=== PATIENT | male | born 1960 | race Caucasian/White ===

== ENCOUNTER 2020-03-22 19:24 | Inpatient (IN) | payer MEDICAID ==
[~2020-03-22] VITALS: Ht 185.4 cm; Wt 113.4 kg
[2020-03-22] MEDS ORDERED: MORPHINE SULFATE 4 MG/ML CPJ (NOT FOR IM USE) IV ONE (20:00)
[2020-03-22] MEDS ORDERED: KETOROLAC 30MG/ML VIAL IV ONE (20:00)
[2020-03-22] MEDS ORDERED: SODIUM CHLORIDE 0.9% 500 ML IV ONE (20:00)
[2020-03-22] MEDS ORDERED: HYDROMORPHONE HCL/PF 2MG/ML CPJ IV ONE (22:30)
[2020-03-22] MEDS: MORPHINE SULFATE 2 MG/ML CPJ (NOT FOR IM USE) IV PRN (22:40)
[2020-03-22 23:21] LABS: BASOPHILS % 0.5 % (0.0-2.0); EOSINOPHILS % 0.5 % (0.0-5.0); HEMATOCRIT. 42.3 % (42.0-52.0); LYMPHOCYTES % 13.6 % (20.0-50.0); MEAN CORPUSCULAR HEMOGLOBIN 27.3 pg (28.0-32.0); MEAN CORPUSCULAR VOLUME 82.6 fL (80.0-94.0); MEAN PLATELET VOLUME 11.1 fl (7.4-10.4); NEUTROPHILS % 80.4 % (40.0-76.0); PLATELET 193 x1000/uL (130-400); RED BLOOD CELL COUNT 5.12 mill/uL (4.7-6.1); RED CELL DISTRIBUTION WIDTH 14.1 % (11.6-14.6)
[2020-03-22 23:25] LABS: CHLORIDE 105 mEq/L (98-107)
[2020-03-22 23:30] LABS: PARTIAL THROMBOPLASTIN TIME 27.6 sec (23.4-31.0); PROTHROMBIN TIME 10.5 sec (9.6-11.0)
[2020-03-23] MEDS ORDERED: IOHEXOL-350 100 ML BOTTLE ONE (01:07)
[2020-03-23] MEDS: MORPHINE SULFATE 2 MG/ML CPJ (NOT FOR IM USE) IV PRN ×8 (02:34→22:41)
[2020-03-23] MEDS ORDERED: HYDRALAZINE 20MG/ML VIAL IV PRN (06:30)
[2020-03-23 08:00] VITALS: BP 145/93
[2020-03-23] MEDS ORDERED: ENOXAPARIN 30MG/0.3ML SYR SUBCUT SCH (09:30)
[2020-03-23] MEDS ORDERED: ACETAMINOPHEN 325MG TABLET PO PRN (09:30)
[2020-03-23] MEDS ORDERED: ONDANSETRON HCL 4MG/2ML INJ IV PRN (09:30)
[2020-03-23 10:42] VITALS: BP 145/93
[2020-03-23] MEDS ORDERED: AMLODIPINE 10MG TABLET PO NR (11:30)
[2020-03-23 12:14] VITALS: BP 145/93
[2020-03-23 12:56] LABS: CLARITY URINE CLEAR (CLEAR); COLOR URINE YELLOW (YELLOW); KETONES URINE NEGATIVE (NEGATIVE); LEUKOCYTE ESTERASE URINE NEGATIVE (NEGATIVE); NITRITE URINE NEGATIVE (NEGATIVE); OCCULT BLOOD URINE NEGATIVE (NEGATIVE); PH URINE 7.5 (4.5-8.0); PROTEIN URINE TRACE (NEGATIVE); SPECIFIC GRAVITY URINE 1.044 (1.005-1.030)
[2020-03-23 13:09] LABS: *AMPHETAMINES SCREEN URINE NEGATIVE (NEGATIVE); *BARBITURATES SCREEN URINE NEGATIVE (NEGATIVE); *BENZODIAZEPINES SCREEN URINE NEGATIVE (NEGATIVE)
[2020-03-23 13:10] LABS: *COCAINE SCREEN URINE PRESUMTIVE POSITIVE (NEGATIVE); CANNABINOID URINE SCREEN PRESUMTIVE POSITIVE (NEGATIVE); METHADONE URINE SCREEN NEGATIVE (NEGATIVE); OPIATES URINE SCREEN PRESUMTIVE POSITIVE (NEGATIVE)
[2020-03-23 13:12] LABS: PHENCYCLIDINE URINE SCREEN NEGATIVE (NEGATIVE)
[2020-03-23] MEDS ORDERED: DEXTROSE 50% WATER 50ML SYRINGE IV PRN (14:15)
[2020-03-23] MEDS ORDERED: HYDRALAZINE 10 MG in SODIUM CHLORIDE 0.9% 49.5 ML IV PRN (14:15)
[2020-03-23 16:00] VITALS: BP 127/74
[2020-03-23] MEDS: BLOOD SUGAR DIAGNOSTIC STRIP TEST SCH ×2 (17:33→20:56)
[2020-03-23] MEDS: INSULIN LISPRO 100 UNITS/ML SUBCUT SCH ×2 (17:55→20:56)
[2020-03-23 20:00] VITALS: BP 137/86
[2020-03-24] VITALS: BP 136/92
[2020-03-24] MEDS: MORPHINE SULFATE 2 MG/ML CPJ (NOT FOR IM USE) IV PRN ×5 (00:49→22:09)
[2020-03-24 04:00] VITALS: BP 142/90
[2020-03-24 07:22] LABS: BASOPHILS % 0.5 % (0.0-2.0); EOSINOPHILS % 0.6 % (0.0-5.0); HEMATOCRIT. 41.7 % (42.0-52.0); HEMOGLOBIN. 13.9 g/dL (14.0-18.0); LYMPHOCYTES % 16.1 % (20.0-50.0); MEAN CORPUSCULAR HEMOGLOBIN 27.3 pg (28.0-32.0); MEAN CORPUSCULAR VOLUME 82.1 fL (80.0-94.0); MEAN PLATELET VOLUME 11.3 fl (7.4-10.4); NEUTROPHILS % 74.8 % (40.0-76.0); PLATELET 163 x1000/uL (130-400); RED BLOOD CELL COUNT 5.08 mill/uL (4.7-6.1); RED CELL DISTRIBUTION WIDTH 14.2 % (11.6-14.6)
[2020-03-24] MEDS: BLOOD SUGAR DIAGNOSTIC STRIP TEST SCH ×4 (07:34→20:45)
[2020-03-24 07:57] LABS: CHLORIDE 105 mEq/L (98-107)
[2020-03-24 08:00] VITALS: BP 159/96
[2020-03-24] MEDS: INSULIN LISPRO 100 UNITS/ML SUBCUT SCH ×4 (08:37→23:15)
[2020-03-24] MEDS: AMLODIPINE 10MG TABLET PO SCH (08:37)
[2020-03-24] MEDS ORDERED: NORMAL SALINE 0.9% 10 ML SYR ONE (11:20)
[2020-03-24] MEDS ORDERED: BUPIVACAINE/EPINEPH/PF 0.25%/0.0005 10ML ONE (11:20)
[2020-03-24] MEDS ORDERED: VANCOMYCIN HCL 1 GM/VIAL ONE (11:21)
[2020-03-24] MEDS ORDERED: BACITRACIN 50,000 UNITS/VIAL ONE (11:21)
[2020-03-24] MEDS ORDERED: SKIN ADHESIVE 0.7 GM EA TOP ONE (11:22)
[2020-03-24] MEDS ORDERED: BACITRACIN 15GM TUBE TOP ONE (11:23)
[2020-03-24 12:00] VITALS: BP 148/87
[2020-03-24] MEDS ORDERED: MIDAZOLAM HCL 2 MG/2 ML VIAL ONE (12:49)
[2020-03-24] MEDS ORDERED: GLYCOPYRROLATE 0.2 MG/ML 2ML VIAL ONE (12:49)
[2020-03-24] MEDS ORDERED: FENTANYL CITRATE/PF 50MCG/ML 2ML VIAL ONE (12:49)
[2020-03-24] MEDS ORDERED: PROPOFOL 200MG/20ML VIAL IV ONE (12:49)
[2020-03-24] MEDS ORDERED: DEXAMETHASONE 4MG/ML 1ML VIAL ONE (12:54)
[2020-03-24] MEDS ORDERED: ONDANSETRON HCL 4MG/2ML INJ ONE (12:54)
[2020-03-24] MEDS ORDERED: SODIUM CHLORIDE 0.9% 10ML VIAL ONE (13:01)
[2020-03-24] MEDS ORDERED: CEFAZOLIN SODIUM 1000MG/VIAL ONE (13:01)
[2020-03-24] MEDS ORDERED: VECURONIUM BROMIDE 10 MG/VIAL IV ONE (13:01)
[2020-03-24] MEDS ORDERED: ROCURONIUM BROMIDE 10MG/ML VIAL 5ML IV ONE (13:11)
[2020-03-24] MEDS ORDERED: HYDROMORPHONE HCL/PF 2MG/ML (OR) ONE ×2 (13:18→15:40)
[2020-03-24] MEDS ORDERED: MEPERIDINE HCL/PF 25MG/ML CPJ IV PRN (13:30)
[2020-03-24] MEDS ORDERED: HYDROMORPHONE HCL/PF 2MG/ML CPJ IV PRN (13:30)
[2020-03-24] MEDS ORDERED: LABETALOL 5MG/ML SYR 20 MG/4 ML SYRINGE IV PRN (13:30)
[2020-03-24] MEDS ORDERED: ONDANSETRON HCL 4MG/2ML INJ IV PRN ×2 (13:30→16:00)
[2020-03-24] MEDS ORDERED: HYDROCODONE/ACETAMINOPHEN 5/325MG TABLET PO PRN ×2 (16:00)
[2020-03-24] MEDS: HYDROMORPHONE HCL/PF 2MG/ML CPJ IV PRN (19:58)
[2020-03-24 20:00] VITALS: BP 110/60
[2020-03-24] MEDS: CEFAZOLIN 1000MG PREMIX 50 ML IV SCH (21:59)
[2020-03-24] MEDS: INSULIN GLARGINE UD 100 UNITS/ML SYR SUBCUT SCH (23:15)
[2020-03-25] VITALS: BP 127/80
[2020-03-25] MEDS: HYDROMORPHONE HCL/PF 2MG/ML CPJ IV PRN ×3 (00:18→13:11)
[2020-03-25] MEDS: MORPHINE SULFATE 2 MG/ML CPJ (NOT FOR IM USE) IV PRN ×3 (03:36→12:10)
[2020-03-25 04:00] VITALS: BP 120/77
[2020-03-25] MEDS: CEFAZOLIN 1000MG PREMIX 50 ML IV SCH ×2 (05:44→13:11)
[2020-03-25] MEDS: BLOOD SUGAR DIAGNOSTIC STRIP TEST SCH ×2 (06:48→13:01)
[2020-03-25 08:00] VITALS: BP 127/77
[2020-03-25] MEDS: ENOXAPARIN 30MG/0.3ML SYR SUBCUT SCH ×2 (09:00→10:23)
[2020-03-25] MEDS: AMLODIPINE 10MG TABLET PO SCH (09:56)
[2020-03-25] MEDS: INSULIN LISPRO 100 UNITS/ML SUBCUT SCH ×2 (10:21→13:16)
[2020-03-25] MEDS: INSULIN GLARGINE UD 100 UNITS/ML SYR SUBCUT SCH (10:21)
[2020-03-25 11:06] LABS: BASOPHILS % 0.3 % (0.0-2.0); EOSINOPHILS % 0.2 % (0.0-5.0); HEMATOCRIT. 37.6 % (42.0-52.0); HEMOGLOBIN. 12.6 g/dL (14.0-18.0); LYMPHOCYTES % 10.5 % (20.0-50.0); MEAN CORPUSCULAR HEMOGLOBIN 27.5 pg (28.0-32.0); MEAN PLATELET VOLUME 10.9 fl (7.4-10.4); MONOCYTES % 8.7 % (2.0-8.0); NEUTROPHILS % 80.3 % (40.0-76.0); PLATELET 178 x1000/uL (130-400); RED BLOOD CELL COUNT 4.58 mill/uL (4.7-6.1); RED CELL DISTRIBUTION WIDTH 14.2 % (11.6-14.6)
[2020-03-25 11:16] LABS: CHLORIDE 102 mEq/L (98-107)
[2020-03-25 12:00] VITALS: BP 134/72
[2020-03-25] MEDS ORDERED: CEFTRIAXONE 1 G PREMIX 50 ML IV SCH (12:00)
[2020-03-25] MEDS ORDERED: OXYC-515 MT (12:15)
[2020-03-25 13:11] VITALS: BP 134/72
[2020-03-25] MEDS ORDERED: INSULIN GLARGINE UD 100 UNITS/ML SYR SUBCUT SCH (22:00)
== END 2020-03-25 14:21 | disposition home health service (06) | DRG 313 ==
LOC: ER 19:24 → 6EST 03-23 01:30 → EDBEDREQ 03-23 01:37 → EDBEDREQTM 03-23 01:37 → ENRESERV 03-23 07:24
PROVIDERS: ADMIT Internal Medicine; ATTEND Internal Medicine
PROC: 0QSH04Z Reposition Left Tibia with Internal Fixation Device, Open Approach (ICD-10-PCS; principal; 2020-03-24)
PROC: 0QUH0JZ Supplement Left Tibia with Synthetic Substitute, Open Approach (ICD-10-PCS; 2020-03-24)
DX: S82.142A Displaced bicondylar fracture of left tibia, initial encounter for closed fracture (principal); E44.1 Mild protein-calorie malnutrition; D72.829 Elevated white blood cell count, unspecified; E11.9 Type 2 diabetes mellitus without complications; E66.9 Obesity, unspecified; F12.90 Cannabis use, unspecified, uncomplicated; F14.90 Cocaine use, unspecified, uncomplicated; F17.210 Nicotine dependence, cigarettes, uncomplicated; I10 Essential (primary) hypertension; Z68.33 Body mass index [BMI] 33.0-33.9, adult; Z71.3 Dietary counseling and surveillance; Z71.51 Drug abuse counseling and surveillance of drug abuser; V28.4XXA Motorcycle driver injured in noncollision transport accident in traffic accident, initial encounter; Y93.89 Activity, other specified; Y92.89 Other specified places as the place of occurrence of the external cause; Y99.8 Other external cause status; Z03.818 Encounter for observation for suspected exposure to other biological agents ruled out
CPT/HCPCS: 36415; 71045; 73560; 73562; 73590; 73700; 73706; 76000; 80048; 80053; 80305; 81003; 82962; 83036; 84145; 84484; 85025; 86850; 86900; 93970; 97162; 99285; C1713; J0171; J0360; J0690; J1100; J1170; J1650; J1815; J1885; J2250; J2270; J2405; J2704; J3010; J3370; J3490; J7040; L1830; Q9967; U0003-CS

== ENCOUNTER 2020-04-03 21:43 | Inpatient (IN) | payer MEDICAID ==
[~2020-04-03] VITALS: Ht 185.4 cm; Wt 113.4 kg
[2020-04-03 20:00] VITALS: BP 152/92
[2020-04-03 20:10] VITALS: BP 152/92
[~2020-04-03 21:43] MED LIST: OXYC-515 MT
[2020-04-03] MEDS ORDERED: DEXTROSE 50% WATER 50ML SYRINGE IV PRN (23:15)
[2020-04-03] MEDS ORDERED: ZOLPIDEM TARTRATE 5MG TABLET PO PRN (23:15)
[2020-04-03] MEDS ORDERED: ACETAMINOPHEN 325MG TABLET PO PRN (23:15)
[2020-04-04] VITALS: BP 149/83
[2020-04-04] MEDS: MORPHINE SULFATE 2 MG/ML CPJ (NOT FOR IM USE) IV PRN ×4 (00:18→21:19)
[2020-04-04] MEDS ORDERED: LOV40 SQ (02:52)
[2020-04-04 04:00] VITALS: BP 114/87
[2020-04-04] MEDS: PIPERACILLIN/TAZ 3.375G PREMIX 50 ML IV SCH ×3 (04:01→21:20)
[2020-04-04] MEDS ORDERED: VANCOMYCIN 1500MG in DEXTROSE 5% WATER 250ML IV SCH (05:00)
[2020-04-04] MEDS ORDERED: PIPERACILLIN/TAZOBACTAM 3.375 G/VIAL IV SCH (06:00)
[2020-04-04 06:20] LABS: CHLORIDE 107 mEq/L (98-107)
[2020-04-04] MEDS: BLOOD SUGAR DIAGNOSTIC STRIP TEST SCH ×4 (06:28→21:43)
[2020-04-04 06:31] LABS: BASOPHILS % 1.1 % (0.0-2.0); EOSINOPHILS % 2.1 % (0.0-5.0); HEMOGLOBIN. 12.1 g/dL (14.0-18.0); LYMPHOCYTES % 24.4 % (20.0-50.0); MEAN CORPUSCULAR HEMOGLOBIN 27.2 pg (28.0-32.0); MEAN CORPUSCULAR VOLUME 83.4 fL (80.0-94.0); MONOCYTES % 7.4 % (2.0-8.0); PLATELET 297 x1000/uL (130-400); RED BLOOD CELL COUNT 4.43 mill/uL (4.7-6.1)
[2020-04-04 08:00] VITALS: BP 151/96
[2020-04-04] MEDS: INSULIN LISPRO 100 UNITS/ML SUBCUT SCH ×3 (08:13→18:16)
[2020-04-04 12:00] VITALS: BP 143/93
[2020-04-04] MEDS: VANCOMYCIN 1 G PREMIX 200 ML IV SCH ×2 (12:41→18:41)
[2020-04-04 16:00] VITALS: BP 154/91
[2020-04-04 20:00] VITALS: BP 149/91
[2020-04-05] VITALS: BP 143/86
[2020-04-05] MEDS: INSULIN LISPRO 100 UNITS/ML SUBCUT SCH ×5 (00:26→21:40)
[2020-04-05] MEDS: MORPHINE SULFATE 2 MG/ML CPJ (NOT FOR IM USE) IV PRN ×3 (02:51→18:44)
[2020-04-05] MEDS: VANCOMYCIN 1 G PREMIX 200 ML IV SCH ×2 (02:51→11:46)
[2020-04-05 04:00] VITALS: BP 144/90
[2020-04-05] MEDS: PIPERACILLIN/TAZ 3.375G PREMIX 50 ML IV SCH ×2 (05:31→11:47)
[2020-04-05] MEDS: BLOOD SUGAR DIAGNOSTIC STRIP TEST SCH ×4 (06:46→21:32)
[2020-04-05 07:52] LABS: CHLORIDE 104 mEq/L (98-107)
[2020-04-05 12:00] VITALS: BP 142/84
[2020-04-05] MEDS: PIPERACILLIN/TAZOBACTAM 3.375 G in DEXT 5% WATER 100 ML IV SCH ×2 (18:24→23:44)
[2020-04-05] MEDS: VANCOMYCIN 1250MG in DEXTROSE 5% WATER 250ML IV SCH (18:25)
[2020-04-05 20:24] VITALS: BP 138/76
[2020-04-06] VITALS: BP 118/64
[2020-04-06] MEDS: MORPHINE SULFATE 2 MG/ML CPJ (NOT FOR IM USE) IV PRN ×5 (00:10→23:45)
[2020-04-06 04:00] VITALS: BP 137/83
[2020-04-06] MEDS: VANCOMYCIN 1250MG in DEXTROSE 5% WATER 250ML IV SCH ×3 (04:53→18:27)
[2020-04-06] MEDS: PIPERACILLIN/TAZOBACTAM 3.375 G in DEXT 5% WATER 100 ML IV SCH ×4 (06:53→23:45)
[2020-04-06] MEDS: BLOOD SUGAR DIAGNOSTIC STRIP TEST SCH ×4 (07:45→21:30)
[2020-04-06 08:00] VITALS: BP 145/77
[2020-04-06] MEDS: INSULIN LISPRO 100 UNITS/ML SUBCUT SCH ×4 (08:47→21:30)
[2020-04-06 12:00] VITALS: BP 145/85
[2020-04-06 16:00] VITALS: BP 134/78
[2020-04-06 20:00] VITALS: BP 145/85
[2020-04-07] VITALS: BP 134/71
[2020-04-07] MEDS: VANCOMYCIN 1250MG in DEXTROSE 5% WATER 250ML IV SCH ×3 (01:54→19:23)
[2020-04-07 04:00] VITALS: BP 160/94
[2020-04-07] MEDS: PIPERACILLIN/TAZOBACTAM 3.375 G in DEXT 5% WATER 100 ML IV SCH ×4 (06:12→23:49)
[2020-04-07] MEDS: BLOOD SUGAR DIAGNOSTIC STRIP TEST SCH ×4 (06:38→20:38)
[2020-04-07 08:00] VITALS: BP 143/84
[2020-04-07] MEDS: INSULIN LISPRO 100 UNITS/ML SUBCUT SCH ×4 (08:08→20:38)
[2020-04-07 08:58] LABS: CHLORIDE 107 mEq/L (98-107)
[2020-04-07] MEDS: MORPHINE SULFATE 2 MG/ML CPJ (NOT FOR IM USE) IV PRN ×4 (10:20→23:49)
[2020-04-07 12:00] VITALS: BP 130/75
[2020-04-07 16:00] VITALS: BP 136/80
[2020-04-07 20:00] VITALS: BP 137/94
[2020-04-08] VITALS: BP 122/77
[2020-04-08] MEDS: VANCOMYCIN 1250MG in DEXTROSE 5% WATER 250ML IV SCH ×3 (01:49→18:45)
[2020-04-08 04:00] VITALS: BP 146/80
[2020-04-08] MEDS: PIPERACILLIN/TAZOBACTAM 3.375 G in DEXT 5% WATER 100 ML IV SCH ×4 (05:46→23:50)
[2020-04-08] MEDS: BLOOD SUGAR DIAGNOSTIC STRIP TEST SCH ×4 (06:35→20:49)
[2020-04-08 08:00] VITALS: BP 134/89
[2020-04-08] MEDS: INSULIN LISPRO 100 UNITS/ML SUBCUT SCH ×4 (08:22→21:04)
[2020-04-08] MEDS: MORPHINE SULFATE 2 MG/ML CPJ (NOT FOR IM USE) IV PRN ×2 (09:04→18:45)
[2020-04-08 12:00] VITALS: BP 128/82
[2020-04-08 16:00] VITALS: BP 138/85
[2020-04-08 20:00] VITALS: BP 141/85
[2020-04-08] MEDS ORDERED: MORPHINE SULFATE 2 MG/ML CPJ (NOT FOR IM USE) IV PRN (23:45)
[2020-04-09] VITALS: BP 129/72
[2020-04-09] MEDS: VANCOMYCIN 1250MG in DEXTROSE 5% WATER 250ML IV SCH ×2 (03:01→09:34)
[2020-04-09 04:00] VITALS: BP 127/76
[2020-04-09] MEDS: PIPERACILLIN/TAZOBACTAM 3.375 G in DEXT 5% WATER 100 ML IV SCH ×2 (06:23→12:46)
[2020-04-09] MEDS: BLOOD SUGAR DIAGNOSTIC STRIP TEST SCH ×3 (06:32→17:20)
[2020-04-09 08:00] VITALS: BP 132/83
[2020-04-09] MEDS: INSULIN LISPRO 100 UNITS/ML SUBCUT SCH ×3 (08:49→17:50)
[2020-04-09 12:00] VITALS: BP_SYST 136; BP_SYST 137; BP_DIAS 90
[2020-04-09] MEDS: HYDROCODONE/ACETAMINOPHEN 5/325MG TABLET PO PRN ×2 (12:05→16:58)
[2020-04-09 16:00] VITALS: BP 130/82
[2020-04-09 16:58] VITALS: BP 132/83
== END 2020-04-09 18:12 | disposition left against medical advice (07) | DRG 721 ==
LOC: 6EST 21:43
PROVIDERS: ADMIT Internal Medicine; ATTEND Internal Medicine
DX: T81.41XA Infection following a procedure, superficial incisional surgical site, initial encounter (principal); E83.51 Hypocalcemia; E11.9 Type 2 diabetes mellitus without complications; F14.90 Cocaine use, unspecified, uncomplicated; I10 Essential (primary) hypertension; Z59.0 Homelessness; Z96.698 Presence of other orthopedic joint implants; F17.200 Nicotine dependence, unspecified, uncomplicated; E78.5 Hyperlipidemia, unspecified; Z20.828 Contact with and (suspected) exposure to other viral communicable diseases; Y83.8 Other surgical procedures as the cause of abnormal reaction of the patient, or of later complication, without mention of misadventure at the time of the procedure; L03.116 Cellulitis of left lower limb; F19.10 Other psychoactive substance abuse, uncomplicated; Z87.81 Personal history of (healed) traumatic fracture; Y92.89 Other specified places as the place of occurrence of the external cause
CPT/HCPCS: 36415; 80048; 80202; 82962; 83036; 85025; 93970; 97116; 97161; J1815; J2270; J2543; J3370; J7060; U0003-CS